=== PATIENT | male | born 1965 | race Caucasian/White ===

== ENCOUNTER 2023-07-04 18:41 | Emergency (ER) | payer BC ==
[2023-07-04] MEDS ORDERED: HYDROCODONE/APAP 7.5/325 MG TAB ONE (19:10)
--- NOTE | 2023-07-04 20:05 | RAD REPORT ---
EXAM DESCRIPTION: RAD - Hip Right 2 View - 07/04/2023 7:33 pm CLINICAL HISTORY: PAIN COMPARISON: Abdomen Pelvis W Contrast dated 12/04/2015 TECHNIQUE: Right hip, AP and frog-leg views. FINDINGS: There is no fracture or dislocation. Osseous protuberance along the superior femoral head/ neck junction, likely developmental, which may predispose to femoroacetabular impingement. Mild degen erative spurring along the superior acetabular margins. No acute or destructive bony process seen. IMPRESSION: No acute osseous abnormality. Degenerative and developmental changes.
--- NOTE | 2023-07-04 21:43 | RAD REPORT ---
EXAM DESCRIPTION: CT - Pelvis Wo Cont - 07/04/2023 8:51 pm CLINICAL HISTORY: right hip pain COMPARISON: No comparisons TECHNIQUE: Thin cut axial CT imaging of the abdomen and pelvis was performed without IV contrast. Mu ltiplanar reformats were generated and reviewed. All CT scans are performed using dose optimization technique as appropriate and may include automated exposure control or mA/KV adjustment according to patient size. FINDINGS: Mildly comminuted fracture involving the right anterior inferior iliac spine and extending cranially, predominantly along the inner cortex of the iliac bone, with mildly displaced components. A nondisplaced hairline component along the outer cortex. Remainder of the pelvic ring is intact. Mild swelling along the body of the iliacus on the right. No discrete hematoma. Mild degenerative changes of the hip joints with marginal acetabular spurring. Mild sacroiliac joint and symphysis pubis degenerative spurring. Small right inguinal hernia containing fat. No dilated bowel loops or bowel wall thickening. No free air, free fluid or inflammatory stranding. A ppendix is unremarkable. No suspicious mass or bulky lymphadenopathy. The urinary bladder is without significant finding. IMPRESSION: Mildly comminuted fracture along the right anterior inferior iliac spine and adjacent trey dy of the iliac bone as above. Mild degenerative changes throughout the pelvis.
--- NOTE | 2023-07-04 21:59 | ER ---
Nurse's Notes [facility] Name: America Jiang Age: 57 yrs Sex: Male : 1965 Arrival Date: 07/04/2023 Time: 18:41 Bed 4 Private MD: Chuy Callejas S Diagnosis: Mildly comminuted fracture along the right anterior inferior iliac spine Presentation: 07/03 19:00 Chief complaint: Patient states: fell and hit the edge of boat. Coronavirus screen: vc1 Client denies travel out of the [place] in the last 14 days. At this time, the client does not indicate any symptoms associated with coronavirus-19. Ebola Screen: Patient negative for fever greater than or equal to 101.5 degrees Fahrenheit, and additional compatible Ebola Virus Disease symptoms Patient denies exposure to infectious person. Patient denies travel to an Ebola-affected area in the 21 days before illness onset. No symptoms or risks identified at this time. Initial Sepsis Screen: Does the patient meet any 2 criteria? No. Patient's initial sepsis screen is negative. Does the patient have a suspected source of infection? No. Patient's initial sepsis screen is negative. Risk Assessment: Do you want to hurt yourself or someone else? Patient reports no desire to harm self or others. Note right hop pain, right arm and hand pain and abrasion. Can't put weight on leg. Onset of symptoms was July 04, 2023 at 13:30. 19:00 Method Of Arrival: Wheelchair vc1 19:00 Acuity: BLANCA 2 vc1 Triage Assessment: 19:04 General: Appears in no apparent distress. uncomfortable, Behavior is calm, cooperative, vc1 appropriate for age. Pain: Complains of pain in right hip Pain does not radiate. Pain currently is 8 out of 10 on a pain scale. at worst was 10 out of 10 on a pain scale. Quality of pain is described as sharp, Pain began suddenly, Is continuous, Alleviated by rest, Aggravated by increased activity, repositioning, weight bearing, Noted to be resistant to movement, Also complains of no other associated symptoms. EENT: No deficits noted. No signs and/or symptoms were reported regarding the EENT system. Neuro: Level of Consciousness is awake, alert, obeys commands, Oriented to person, place, time, situation, Appropriate for age. Cardiovascular: No deficits noted. Respiratory: Airway is patent Respiratory effort is even, unlabored, Respiratory pattern is regular, symmetrical. Derm: Wound noted right arm. Musculoskeletal: Reports pain in right hip Pain is 8 out of 10 on a pain scale. Historical: - Allergies: 19:03 No Known Allergies; vc1 - PMHx: 19:03 high cholesterol; cyst removal from hand; vasectomy; vc1 - Immunization history:: Client reports receiving the 2nd dose of the Covid vaccine, Flu vaccine is not up to date. - Infectious Disease History:: Denies. - Social history:: Smoking status: Patient reports the use of cigarette tobacco products, denies chronic smoking, but will smoke occasionally, Patient uses alcohol, occasionally. Screenin:[facility] ED Fall Risk Assessment (Adult) History of falling in the last 3 months, bm8 including since admission Yes- single mechanical fall (1 pt) Confusion or Disorientation No (0 pts) Intoxicated or Sedated No (0 pts) Impaired Gait No (0 pts) Mobility Assist Device Used No (0 pt) Altered Elimination No (0 pt) Score/Fall Risk Level 0 - 2 = Low Risk Oriented to surroundings, Maintained a safe environment, Educated pt \T\ family on fall prevention, incl call for assistance when getting out of bed. Abuse screen: Denies threats or abuse. Nutritional screening: No deficits noted. Tuberculosis screening: No symptoms or risk factors identified. Assessment: 19:13 General: Appears in no apparent distress. comfortable, Behavior is calm, cooperative, bm8 appropriate for age. Pain: Complains of pain in right hip Pain does not radiate. Neuro: Level of Consciousness is awake, alert, obeys commands, Oriented to person, place, time, situation, Appropriate for age. Cardiovascular: Capillary refill < 3 seconds Patient's skin is warm and dry. Respiratory: Airway is patent Respiratory effort is even, unlabored, Respiratory pattern is regular, symmetrical. GI: No deficits noted. No signs and/or symptoms were reported involving the gastrointestinal system. : No deficits noted. No signs and/or symptoms were reported regarding the genitourinary system. EENT: No deficits noted. No signs and/or symptoms were reported regarding the EENT system. Musculoskeletal: Capillary refill < 3 seconds, in bilateral toes. Reports pain in right hip. 19:25 Reassessment: Patient and/or family updated on plan of care and expected duration. Pain tm6 level reassessed. Patient is alert, oriented x 3, equal unlabored respirations, skin warm/dry/pink. 20:42 Reassessment: Patient appears in no apparent distress at this time. Patient and/or tm6 family updated on plan of care and expected duration. Pain level reassessed. Patient is alert, oriented x 3, equal unlabored respirations, skin warm/dry/pink. 21:28 Reassessment: Patient appears in no apparent distress at this time. No changes from tm6 previously documented assessment. 21:35 Reassessment: Patient appears in no apparent distress at this time. No changes from bm8 previously documented assessment. Patient and/or family updated on plan of care and expected duration. Pain level reassessed. Patient is alert, oriented x 3, equal unlabored respirations, skin warm/dry/pink. 21:35 Reassessment: informed provider of patient pain. for which type of pain medication to 8 give will be based on CT results. 22:23 Pain: Complains of pain in right hip Pain currently is 3 out of 10 on a pain scale. bm8 Vital Signs: 19:00 Pulse 95; Resp 16; Temp 98.7; Pulse Ox 96% ; Weight 84.37 kg; Height 5 ft. 8 in. ; Pain vc1 8/10; 19:06 BP 136 / 82; vc1 19:25 BP 148 / 97; Pulse 97; Pulse Ox 94% on R/A; tm6 20:40 BP 146 / 80; Pulse 91; Pulse Ox 94% on R/A; tm6 21:27 BP 132 / 77; Pulse 83; Pulse Ox 97% on R/A; tm6 22:23 BP 135 / 75; Pulse 81; Resp 20; Temp 98.1; Pulse Ox 100% ; Pain 3/10; bm8 19:00 Body Mass Index 28.28 (84.37 kg, 172.72 cm) vc1 19:00 Pain Scale: Adult vc1 22:23 Pain Scale: Adult bm8 [place] Coma Score: 19:13 Eye Response: spontaneous(4). Motor Response: obeys commands(6). Verbal Response: bm8 oriented(5). Total: 15. 22:23 Eye Response: spontaneous(4). Motor Response: obeys commands(6). Verbal Response: bm8 oriented(5). Total: 15. ED Course: 18:43 Patient arrived in ED. mr 18:44 Chuy Callejas MD is Private Physician. mr 18:58 [facility] Sal[facility]C [facility] kb 18:58 Chilo Shaikh MD is Attending Physician. kb 19:03 Triage completed. vc1 19:04 Arm band placed on left wrist. vc1 19:08 Jovany Noland, RN is Primary Nurse. bm8 19:13 Patient has correct armband on for positive identification. Placed in gown. Bed in low bm8 position. Call light in reach. Side rails up X 1. Adult w/ patient. Pulse ox on. NIBP on. Door closed. Noise minimized. Visitors limited. Warm blanket given. Verbal reassurance given. 19:13 No provider procedures requiring assistance completed. bm8 19:35 Hip Right 2 View XRAY In Process Unspecified. EDMS 20:[address] In Process Unspecified. EDMS 21:58 Tam Savage MD is Referral Physician. kb 22:23 Provided Education on: post er care, follow up with ortho thursday. bm8 22:23 Patient did not have IV access during this emergency room visit. bm8 Administered Medications: 19:13 Drug: Hydrocodone-Acetaminophen PO (7.5 mg-325 mg) 1 tabs PO once Route: PO; bm8 22:09 Follow up: Response: No adverse reaction bm8 22:22 Drug: Ondansetron PO 4 mg PO once Route: PO; bm8 22:23 Follow up: Response: Medication administered at discharge. bm8 22:23 Drug: Ketorolac IM 30 mg IM once Route: IM; Site: right deltoid; bm8 22:23 Follow up: Response: Medication administered at discharge. bm8 22:23 Drug: morphine IM 4 mg IM once Route: IM; Site: left deltoid; bm8 22:23 Follow up: Response: Medication administered at discharge. bm8 Medication: 19:13 VIS not applicable for this client. bm8 Outcome: 21:58 Discharge ordered by . kb 22:23 Discharged to home ambulatory, with crutches, bm8 22:23 Condition: stable 22:23 Discharge instructions given to patient, family, Instructed on discharge instructions, follow up and referral plans. no drinking with medication, no driving heavy equipment, medication usage, safety practices, crutch walking, Demonstrated understanding of instructions, follow-up care, medications, Prescriptions given X 3, 22:26 Patient left the ED. bm8 Signatures: Dispatcher [employer] EDMS lEyssa Salazar, ENVELOPE MACHINE ADJUSTER-C ENVELOPE MACHINE ADJUSTER-Ckb [place]a [place], Reg Reg mr Rosey Camarena, RN RN vc1 Migue Wells RN RN tm6 Jovany Noland RN RN bm8
--- NOTE | 2023-07-04 21:59 | EDPHYS ---
Physician Documentation [facility] Name: America Jiang Age: 57 yrs Sex: Male : 1965 Arrival Date: 07/04/2023 Time: 18:41 Bed 4 Private MD: Chuy Callejas S ED Physician Chilo Shaikh HPI: 07/03 22:56 This 57 yrs old Male presents to ER via Wheelchair with complaints of Fall Injury, Hip kb Pain. 22:56 Pt is a 57 year old male who was walking from one boat to another when he slipped and kb fell, hitting right hip on one of the boats. c/o right hip pain and decreased ROM. Denies numbness or tingling. Historical: - Allergies: 19:03 No Known Allergies; vc1 - PMHx: 19:03 high cholesterol; cyst removal from hand; vasectomy; vc1 - Immunization history:: Client reports receiving the 2nd dose of the Covid vaccine, Flu vaccine is not up to date. - Infectious Disease History:: Denies. - Social history:: Smoking status: Patient reports the use of cigarette tobacco products, denies chronic smoking, but will smoke occasionally, Patient uses alcohol, occasionally. ROS: 22:55 Constitutional: As per HPI kb Exam: 22:55 Constitutional: This is a well developed, well nourished patient who is awake, alert, kb and in no acute distress. Head/Face: Normocephalic, atraumatic. ENT: Moist Mucous membranes Cardiovascular: Regular rate Respiratory: Respirations even and unlabored. No increased work of breathing. Talking in full sentences Neuro: Awake and alert, GCS 15, oriented to person, place, time, and situation. Moves all extremities. Normal gait. 22:55 Musculoskeletal/extremity: Extremities: grossly normal except: noted in the right hip: decreased ROM, pain, tenderness, ROM: limited active range of motion due to pain, Circulation is intact in all extremities. Sensation intact. Weight bearing: can bear weight with assistance only, 22:55 Skin: injury, abrasion(s), moderate sized abrasion noted, of the palmar aspect of right forearm, Vital Signs: 19:00 Pulse 95; Resp 16; Temp 98.7; Pulse Ox 96% ; Weight 84.37 kg; Height 5 ft. 8 in. ; Pain vc1 8/10; 19:06 BP 136 / 82; vc1 19:25 BP 148 / 97; Pulse 97; Pulse Ox 94% on R/A; tm6 20:40 BP 146 / 80; Pulse 91; Pulse Ox 94% on R/A; tm6 21:27 BP 132 / 77; Pulse 83; Pulse Ox 97% on R/A; tm6 22:23 BP 135 / 75; Pulse 81; Resp 20; Temp 98.1; Pulse Ox 100% ; Pain 3/10; bm8 19:00 Body Mass Index 28.28 (84.37 kg, 172.72 cm) vc1 19:00 Pain Scale: Adult vc1 22:23 Pain Scale: Adult bm8 [place] Coma Score: 19:13 Eye Response: spontaneous(4). Motor Response: obeys commands(6). Verbal Response: bm8 oriented(5). Total: 15. 22:23 Eye Response: spontaneous(4). Motor Response: obeys commands(6). Verbal Response: bm8 oriented(5). Total: 15. MDM: 18:58 Patient medically screened. kb 21:55 Differential diagnosis: contusion, fracture, sprain, strain. Data reviewed: vital kb signs, nurses notes. Consideration of Admission/Observation Escalation of care including admission/observation considered. admission considered, but after discussing case with Dr Savage, pt will be discharged to follow up on Thursday. Management of patient was discussed with the following: Vulcanizing Press Operator: Dr Savage recommends outpatient follow up in his office on Thursday. No need for admission at this time. Counseling: I had a detailed discussion with the patient and/or guardian regarding the historical points, exam findings, and any diagnostic results supporting the discharge/admit diagnosis, radiology results, the need for outpatient follow up, a orthopedic surgeon, to return to the emergency department if symptoms worsen or persist or if there are any questions or concerns that arise at home. 07/03 19:06 Order name: Hip Right 2 View XRAY; Complete Time: 20:06 kb 07/03 20:32 Order name: Pelvis Wo Cont CT; Complete Time: 21:43 kb 07/03 21:57 Order name: Crutch Training; Complete Time: 22:22 kb Administered Medications: 19:13 Drug: Hydrocodone-Acetaminophen PO (7.5 mg-325 mg) 1 tabs PO once Route: PO; bm8 22:09 Follow up: Response: No adverse reaction bm8 22:22 Drug: Ondansetron PO 4 mg PO once Route: PO; bm8 22:23 Follow up: Response: Medication administered at discharge. bm8 22:23 Drug: Ketorolac IM 30 mg IM once Route: IM; Site: right deltoid; bm8 22:23 Follow up: Response: Medication administered at discharge. bm8 22:23 Drug: morphine IM 4 mg IM once Route: IM; Site: left deltoid; bm8 22:23 Follow up: Response: Medication administered at discharge. bm8 Disposition: 07/04 10:06 Co-signature as Attending Physician, Chilo Shaikh MD I reviewed the patient's care rt provided by the Advanced Practice Provider and agree with the diagnosis and treatment plan. Disposition Summary: 07/04/23 21:58 Discharge Ordered Notes: Location: Home kb Condition: Stable kb Diagnosis - Mildly comminuted fracture along the right anterior inferior iliac spine kb Followup: kb - With: Emergency Department - When: As needed - Reason: Worsening of condition Followup: kb - With: Tam Savage MD - When: 1 - 2 days - Reason: Recheck today's complaints Discharge Instructions: - Discharge Summary Sheet kb - Avulsion Fracture of the Anterior Inferior Iliac Spine kb Forms: - Medication Reconciliation Form kb - Thank You Letter kb - Antibiotic Education kb - Prescription Opioid Use kb - Patient Portal Instructions kb - Leadership Thank You Letter kb Prescriptions: - Ibuprofen 800 mg Oral Tablet - take 1 tablet ORAL route every 8 hours As needed take with food; 30 tablet; kb Refills: 0, Product Selection Permitted - Tramadol 50 mg Oral Tablet - take 1 tablet ORAL route every 8 hours as needed; 12 tablet; Refills: 0, kb Product Selection Permitted - orphenadrine citrate 100 mg Oral Tablet Sustained Release - take 1 tablet ORAL route 2 times per day As needed; 20 tablet; Refills: 0, kb Product Selection Permitted Signatures: Dispatcher [employer] Elyssa Fuller, Rosey Baird RN RN vc1 Chilo Shaikh MD MD rt Jovany Noland RN RN bm8
[2023-07-04] MEDS ORDERED: KETOROLAC 30 MG/ML INJ ONE (22:11)
[2023-07-04] MEDS ORDERED: MORPHINE 4 MG/ML SYR ONE (22:11)
[2023-07-04] MEDS ORDERED: ONDANSETRON 4 MG (ODT) TAB ONE (22:11)
[2023-07-04 22:46] VITALS: BP 135/75; TEMP 98.1; O2SAT 100
== END 2023-07-04 22:26 | disposition home or self-care (01) ==
LOC: ER 18:41
DX: S32.311A Displaced avulsion fracture of right ilium, initial encounter for closed fracture (principal); F17.210 Nicotine dependence, cigarettes, uncomplicated
CPT/HCPCS: 72192; 73502; 96372; 99284; Q0162